=== PATIENT | male | born 1980 | race African-American/Black ===

== ENCOUNTER 2016-08-10 08:35 | Emergency (ER) | payer MEDICAID, OTHER ==
[~2016-08-10] VITALS: Ht 188 cm; Wt 90.7 kg
[2016-08-10 08:54] VITALS: BP 133/88
== END 2016-08-10 10:10 | disposition left against medical advice (07) ==
LOC: EDSEX 08:35 → ER 08:46
DX: R51 Headache (principal); M54.2 Cervicalgia; V49.49XA Driver injured in collision with other motor vehicles in traffic accident, initial encounter; Y93.89 Activity, other specified; Y99.9 Unspecified external cause status; Y92.89 Other specified places as the place of occurrence of the external cause